=== PATIENT | male | born 1960 | race Caucasian/White ===

== ENCOUNTER → 2018-02-04 | Outpatient (CLI) | payer BC ==
--- NOTE | 2018-02-04 11:59 | DIAGNOSTIC IMAGING REPORT ---
(CHEST) THORAX WITHOUT CT DOSE: 812.44 mGy.cm CLINICAL HISTORY: 57 years-old Male with LUNG NODULE. Acute shortness of breath with reported history of lung nodule. TECHNIQUE: Multiaxial CT images of the chest were performed without contrast. A dose lowering technique was utilized adhering to the principles of ALARA. COMPARISON: None. FINDINGS: No dominant thyroid nodule identified. Mildly enlarged subcarinal lymph node measures 11 mm in short axis, nonspecific. No additional pathologically enlarged lymph nodes identified. Heart is normal in size without pericardial effusion. Thoracic aorta is normal in both course and caliber without aneurysm identified. The unopacified pulmonary arterial tree appears unremarkable. There are multiple calcified granulomas within the lungs bilaterally. There is no pneumothorax, pleural effusion, focal airspace consolidation or evidence of pulmonary edema. Linear subsegmental opacities of the left lung base, notably within the inferior segment lingula suggest areas of atelectasis/scarring. Evaluation of the lung bases is limited secondary to respiratory motion. There is suggestion of a 2 mm solid nodule of the left lower lobe on image 183 series 4. No suspicious noncalcified pulmonary nodules are identified. Mild upper lobe predominant centrilobular emphysema. Mild biapical pleural-parenchymal scarring. Central airways are patent. Mild wall thickening of the lung bases, notably on the left. No acute process of the imaged upper abdomen. Soft tissues are within normal limits. Degenerative changes are seen within the shoulders and spine. IMPRESSION: 1. No acute process of the chest. 2. Multiple bilateral calcified pulmonary nodules compatible with prior granulomatous disease. No suspicious noncalcified pulmonary nodules are identified. 3. Emphysema. 4. Mild bronchial wall thickening of the left lung base may reflect bronchitis. 5. Mildly enlarged subcarinal lymph node, likely reactive. Electronically signed by: Rich Caro M.D. 02/04/2018 11:58 AM Dictated Date/Time: 02/04/2018 11:52 AM
== END | disposition home or self-care (01) ==
LOC: C.CTS 11:28
PROVIDERS: ATTEND Registered Nurse
DX: R91.8 Other nonspecific abnormal finding of lung field (principal)